=== PATIENT | male | born 1955 | race Caucasian/White ===

== ENCOUNTER 2016-08-28 10:40 | Inpatient (IN) | payer OTHER ==
[2016-08-28] MEDS ORDERED: ONDANSETRON HCL 4 MG/2 ML VIAL IV ONE (11:02)
[2016-08-28] MEDS ORDERED: MORPHINE 4 MG/ML INJECTION IV ONE (11:02)
[2016-08-28] MEDS ORDERED: NICOTINE 21 MG PATCH TOP ONE (11:02)
--- NOTE | 2016-08-28 11:10 | EDPRACDOC ---
- General Information Chief Complaint: Wound Stated Complaint: WOUND Time Seen by Provider: 08/28/16 10:59 Information Source: Patient Mode Of Arrival: Car Home Medications: Home Medications Alprazolam [Xanax] 1 mg PO TID PRN 06/30/13 Carvedilol [Coreg] 6.25 mg PO BID 06/30/13 Gabapentin [Neurontin] 400 mg PO BID 06/30/13 Hydroxyzine Pamoate [Vistaril] 50 mg PO BID PRN 06/30/13 Ranolazine [Ranexa] 1,000 mg PO BID 06/30/13 Rosuvastatin [Crestor] 10 mg PO HS 06/30/13 Tiotropium [place] [Spiriva] 1 puff INH QAM 06/30/13 Metformin HCl [Metformin HCl ER] 1,500 mg PO QAM 09/10/13 Mirtazapine 15 mg PO HS 09/10/13 Aspirin (Enteric Coated) [Ecotrin] 81 mg PO QAM 01/27/14 Gabapentin 800 mg PO HS 02/16/14 Nitroglycerin [Nitrostat] 0.4 mg SL Q5MX3 PRN 02/16/14 Canagliflozin [Invokana] 300 mg PO QAM 08/17/15 Cephalexin Monohydrate [Keflex] 500 mg PO Q8H #30 cap 08/26/16 Albuterol Sulfate [Proair Hfa] 2 puff INH Q6H PRN 08/28/16 Fluticasone/Salmeterol [Advair 250-50 Diskus] 1 puff IH BID 08/28/16 Oxycodone HCl [Oxycodone Immediate Release] 10 mg PO BID 08/28/16 Allergies/Adverse Reactions: Allergies Allergy/AdvReac Type Severity Reaction Status Date / Time peach [[place]] Allergy Severe Hives* Verified 08/28/16 10:53 codeine [Codeine] Allergy Intermediate Nausea/Vomi Verified 08/28/16 10:53 ting - History of Present Illness Onset: 8 DAYS HPI: PT HAS HAD A WOUND TO HIS LEFT LEG FOR THE PAST 8 DAYS. HE WAS INITIALLY SEEN BY HIS DR AND TREATED WITH CIPRO. IT WAS NOT GETTING BETTER, SO HE WAS SEEN ON 08/25. PT WAS SEEN AND EVAL AND ADMISSION WAS RECOMMENDED. THE PT WAS SEEN BY DR. GARING, BUT PT REFUSED TO STAY. PT SAID THE INFECTION IS WORSENING. THE PT SAID THAT HE IS WILLING TO STAY NOW. Mechanism: Reports: None Circumstances: Reports: Preceding Wound Able to Bear Weight: Limited Associated Signs & Symptoms: Reports: Swelling Pain In: Reports: Ankle, Leg ED Past Medical History - Patient Medical History Cardiac History: Reports: Coronary Artery Disease, Hypertension, Heart Attack, Cardiac Catheterization Respiratory History: Reports: COPD, Pneumonia, Emphysema Musculoskeletal History: Reports: Arthritis (left shoulder) Psychological History: Reports: Depression. Denies: Substance Use Disorder Systemic History: Reports: Diabetes (Type 2). Denies: Cancer Additional Past Medical History: PERIPHERAL NEUROPATHY Surgical History: Reports: Angioplasty, Cardiac Catheterization - Family Medical History Reports: Hypertension (mother), Diabetes (mother, brother), Cancer (mother, brother), Stroke (brother), Cardiac Disorders (mother, brother x2) - Social Medical History Smoking Status: Former smoker Social History: Denies: Other Substance Use ETOH: None Substance Abuse: None Lives With: Spouse Lives In: Home EDM Review of Systems - Review of Systems ROS Negative Except as Marked: Yes All systems reviewed and were negative except as marked Musculoskeletal: Ankle Integumentary: Wound - Physical Exam Constitutional: Alert (Awake), No apparent distress Oriented to: Time, Person, Place Last recorded Vital Signs: Last Vital Signs Temp 98.4 F 08/28/16 10:51 Pulse 94 08/28/16 10:51 Resp 18 08/28/16 10:51 BP 134/60 08/28/16 10:51 Pulse Ox 93 08/28/16 10:51 Oxygen Pulse Oxygen Saturation 93 O2 Device Oxygen Flow Rate Fraction of Inspired Oxygen ( FIO2) - HEENT Head: Normal ( normocephalic) Eye Exam: Normal (PERRL, EOMI, Sclera white) Oropharynx: Normal (Pharynx:Moist without exudate,Gums-no swelling) ENT EAC: Normal TMJ: Normal Nose: No Symptoms Reported (septum midline) Neck: Normal (FROM, trachea at midline) - Respiratory/Cardiovascular Respiratory: Normal - CTA (BBS clear to auscultation without adventitious sounds ) Cardiovascular: Normal (RRR without murmur, gallop or rub) - GI Auscultation: Normal (NABS) Palpation: Normal (Soft,No rebound or guarding, non distended) Tenderness: Non tender Gann's Sign: Negative - Musculoskeletal Back: Normal Extremities: Other (LEFT ANKLE WOUND WITH SURROUNDING CELLULITIS) - Integumentary Skin: Normal, Warm, Dry Lymphatics: Normal (no adenopathy) - Neurologic Memory Impaired: Normal Motor Function: Normal (Normal tone, Pulses 2+ No cyanosis or edema, FROM) Cranial Nerve: Normal (CN II-X11 intact sensation, strength 5/5) Cerebellar: Normal Mood Description: Normal Perception: Normal - Results 08/28/16 11:15 08/28/16 11:15 - EKG EKG #1 EKG Time: 11:09 -: Yes EKG interpreted by me Rate: bpm: 85 [place]: Normal Rhythm: NSR Block: None Hypertrophy: None ST: Normal - Diagnostic Imaging Chest Image interpreted by: Radiologist Minimal enlargement of cardiac silhouette with pulmonary vascular congestion but no acute edema. Bronchitic changes with subsegmental atelectasis RIGHT base. - Departure Yes I personally saw and evaluated the patient. Disposition: Admit IP To This Hospital Condition: Fair Final Diagnosis: Left leg cellulitis, Peripheral vascular disease, Poorly controlled type 2 diabetes mellitus, Tobacco abuse Instructions: Managing Diabetes During Sick Days (ED), Diabetes and Exercise Education/Counseling Given To: Patient Education/Counseling Given Regarding: Diagnosis, Treatment Referrals: Shawna Espinoza MD [Primary Care Provider] - One Week Prescriptions: No Action Rosuvastatin [Crestor] 10 mg PO HS Ranolazine [Ranexa] 1,000 mg PO BID Tiotropium [place] [Spiriva] 1 puff INH QAM Carvedilol [Coreg] 6.25 mg PO BID Gabapentin [Neurontin] 400 mg PO BID Alprazolam [Xanax] 1 mg PO TID PRN PRN Reason: Anxiety Hydroxyzine Pamoate [Vistaril] 50 mg PO BID PRN PRN Reason: ANXIETY/ITCHING Mirtazapine 15 mg PO HS Metformin HCl [Metformin HCl ER] 1,500 mg PO QAM Aspirin (Enteric Coated) [Ecotrin] 81 mg PO QAM Gabapentin 800 mg PO HS Nitroglycerin [Nitrostat] 0.4 mg SL Q5MX3 PRN PRN Reason: Chest Pain Or Discomfort Canagliflozin [Invokana] 300 mg PO QAM Cephalexin Monohydrate [Keflex] 500 mg PO Q8H #30 cap Fluticasone/Salmeterol [Advair 250-50 Diskus] 1 puff IH BID Oxycodone HCl [Oxycodone Immediate Release] 10 mg PO BID Albuterol Sulfate [Proair Hfa] 2 puff INH Q6H PRN PRN Reason: Shortness Of Breath Forms: Patient Discharge Instructions, ED Discharge Instructions Decision to Admit Time: 11:58 Decision to admit date: 08/28/16 Decision to admit: from ED - Physician Consulted Hospitalist Provider Called: Jewel Dee
[2016-08-28 11:32] LABS: AUTOMATED BASOPHIL 0.5 % (0-2); AUTOMATED EOSINOPHIL 4.8 % (0-5); AUTOMATED LYMPH 31.5 % (17-44); AUTOMATED NEUTROPHIL 51.2 % (45-76)
[2016-08-28 11:42] LABS: PARTIAL THROMB. TIME 25.2 SEC (22-35)
[2016-08-28 11:47] LABS: BLOOD UREA NITROGEN 16 MG/DL (9-20); CALCIUM 9.1 MG/DL (8.4-10.2); CALCULATED OSMOLALITY 272 MOs/Kg (270-290); CHLORIDE 100 mEq/L (98-107); GLUCOSE 192 mg/dL (70-99); SODIUM LEVEL 138 mEq/L (137-146); TOTAL PROTEIN 8.2 G/DL (6.3-8.2)
[2016-08-28] MEDS ORDERED: GLUCOSE (ORAL GEL) 15 GM TUBE PO PRN (12:06)
[2016-08-28] MEDS ORDERED: GLUCAGON 1 MG VIAL SQ PRN (12:06)
[2016-08-28] MEDS ORDERED: DEXTROSE 25 GM/50 ML PFS IV PRN (12:06)
--- NOTE | 2016-08-28 12:07 | DIRPT ---
CLINICAL DATA: Diabetes mellitus, coronary artery disease, LEFT leg wound treated with Cipro, not improving, worsening infection EXAM: PORTABLE CHEST 1 VIEW COMPARISON: Portable exam 1108 hours compared to 06/30/2013 FINDINGS: Minimal enlargement of cardiac silhouette and pulmonary vascular congestion. Mediastinal contours normal. Bronchitic changes with subsegmental atelectasis at RIGHT base. Remaining lungs clear. No pleural effusion or pneumothorax. Bones unremarkable. IMPRESSION: Minimal enlargement of cardiac silhouette with pulmonary vascular congestion but no acute edema. Bronchitic changes with subsegmental atelectasis RIGHT base. Electronically Signed By: Rik Ortiz M.D. On: 08/28/2016 12:05
[2016-08-28] MEDS ORDERED: NITROGLYCERINE 0.4 MG TAB SL PRN (12:27)
[2016-08-28] MEDS ORDERED: Non-Formulary Medication ITEM (Alprazolam [Xanax] 1 MG) PO PRN (12:27)
--- NOTE | 2016-08-28 12:35 | HISTPHYS ---
- Chief Complaint Painful swelling warmth and redness involving left foot up to knee level, left lateral ankle ulcer. - History of Present Illness 60 yowm presented to emergency room early on today for evaluation of progressive worsening swelling warmth and redness involving left lower extremity from knee down. Patient stays that about 10 days ago he he has developed fairly intense pain involving left lateral ankle, his subsequent noticed progression ulceration redness warmth tenderness to touch and limitation of motion at the ankle level. He has noticed that redness has spread to distal aspect of the foot and toe was the knee as well. He reports no trauma to left ankle or foot. He was seen by PCP and placed on course of Keflex and despite using his medications prescribed he did not sustain asymptomatic improvement. Area of ulceration has enlarged and redness has spread as well. Given worsening symptoms and persistent constant pain he decided to be evaluated emergency room.. Diagnosis of diabetic ankle ulcer with extensive left lower leg cellulitis was established medical consultation was phoned in for inpatient treatment. - Medical History Cardiac History: Reports: Coronary Artery Disease, Hypertension, Heart Attack, Cardiac Catheterization, Valvular Heart Disease Respiratory History: Reports: COPD, Pneumonia, Emphysema GI/ History: Reports: Renal Disease, Gastroesophageal Reflux Musculoskeletal History: Reports: Arthritis (left shoulder) Systemic History: Reports: Diabetes (Type 2). Denies: Cancer Neurological History: Reports: No Significant History (Surgery on the lung, forearm fixation due to fracture) Psychological History: Reports: Depression. Denies: Substance Use Disorder - Surgical History Reports: Angioplasty, Cardiac Catheterization - Medictions/Allergies Allergies peach [[place]] Allergy (Severe, Verified 08/28/16 10:53) Hives* codeine [Codeine] Allergy (Intermediate, Verified 08/28/16 10:53) Nausea/Vomiting Current Medication List: Reviewed Home Medications Alprazolam [Xanax] 1 mg PO TID PRN 06/30/13 Carvedilol [Coreg] 6.25 mg PO BID 06/30/13 Gabapentin [Neurontin] 400 mg PO BID 06/30/13 Hydroxyzine Pamoate [Vistaril] 50 mg PO BID PRN 06/30/13 Ranolazine [Ranexa] 1,000 mg PO BID 06/30/13 Rosuvastatin [Crestor] 10 mg PO HS 06/30/13 Tiotropium [place] [Spiriva] 1 puff INH QAM 06/30/13 Metformin HCl [Metformin HCl ER] 1,500 mg PO QAM 09/10/13 Mirtazapine 15 mg PO HS 09/10/13 Aspirin (Enteric Coated) [Ecotrin] 81 mg PO QAM 01/27/14 Gabapentin 800 mg PO HS 02/16/14 Nitroglycerin [Nitrostat] 0.4 mg SL Q5MX3 PRN 02/16/14 Canagliflozin [Invokana] 300 mg PO QAM 08/17/15 Cephalexin Monohydrate [Keflex] 500 mg PO Q8H #30 cap 08/26/16 Albuterol Sulfate [Proair Hfa] 2 puff INH Q6H PRN 08/28/16 Fluticasone/Salmeterol [Advair 250-50 Diskus] 1 puff IH BID 08/28/16 Oxycodone HCl [Oxycodone Immediate Release] 10 mg PO BID 08/28/16 - Family History Reports: Hypertension (mother), Diabetes (mother, brother), Cancer (mother, brother), Stroke (brother), Cardiac Disorders (mother, brother x2) - Social History Travel Outside of [place] in the Last 3 Months?: No Lives: With Family Smoking Status: Heavy tobacco smoker (5 or more cigarettes/day or daily pipe/ cigar) Social History: Denies: Other Substance Use - Review of Systems Constitutional: Chills, Fever, Diaphoresis, Fatigue, Loss of Appetite, Weakness Eyes: No Symptoms Reported Ears: No Symptoms Reported Nose: No Symptoms Reported Mouth: No Symptoms Reported Throat/Neck: No Symptoms Reported Respiratory: Cough, Shortness of Breath, Wheezing, Sputum, Dyspnea Cardiovascular: No Symptoms Reported Gastrointestinal: Constipation, Heartburn Genitourinary: Nocturia Neurological: Numbness, Weakness Musculoskeletal:: Arthritis Integumentary: No Symptoms Reported Allergic/Immunologic: No Symptoms Reported Hematologic: No Symptoms Reported Endocrine: No Symptoms Reported Psychiatric: No Symptoms Reported - Physical Exam Vital Signs: Initial Vitals Temperature 98.4 F 08/28/16 10:51 Pulse Rate 94 08/28/16 10:51 Respiratory Rate 18 08/28/16 10:51 Blood Pressure 134/60 08/28/16 10:51 Pulse Oxygen Saturation 93 08/28/16 10:51 Constitutional: Alert Oriented to: Time, Person, Place - HEENT Head: Normal Eye: Normal Oropharynx: Normal ENT EAC: Normal TMJ: Normal Nose: No Symptoms Reported Respiratory: Diminished, Rhonchi Cardiovascular: Normal, Systolic murmur - GI Auscultation: Normal Palpation: Normal Tenderness: Non tender Rectal Exam: Deferred - Exam Deferred: Yes - Musculoskeletal Back: Normal Extremities: Normal, Cyanosis Spine: non-tender, limited range of motion - Integumentary Skin: Warm, Dry Lymphatics: Normal - Neurologic Memory Impaired: Normal Motor Function: Normal Cranial Nerve: Normal Cerebellar: Ataxia Mood Description: Anxious Thought: Coherent Perception: Normal - Focused CV Perfusion Exam Vital Signs: Last Vital Signs Temp 98.4 F 08/28/16 10:51 Pulse 82 08/28/16 12:00 Resp 18 08/28/16 12:00 BP 108/80 08/28/16 12:00 Pulse Ox 94 08/28/16 12:00 - Diagnostic Findings Last Vital Signs Temp 98.4 F 08/28/16 10:51 Pulse 82 08/28/16 12:00 Resp 18 08/28/16 12:00 BP 108/80 08/28/16 12:00 Pulse Ox 94 08/28/16 12:00 08/28/16 11:15 08/28/16 11:15 Abnormal Lab Results 08/28/16 08/28/16 11:15 11:15 RBC 4.36 L MCV 103 H MCH 35.1 H MPV 7.0 L [place] % (Auto) 12.0 H Anion Gap 17 H Glucose 192 H Abnormal Lab Results 08/28/16 08/28/16 11:15 11:15 RBC 4.36 L MCV 103 H MCH 35.1 H MPV 7.0 L [place] % (Auto) 12.0 H Anion Gap 17 H Glucose 192 H Patient Name: BRAYDEN RAYA LOC: ED : 1955 AGE: 60 Order Date:08/28/16 Date of Service:02/04 Report # [id number] Ord Physician: Geni Shetty MD Exam # [id number] Emergency Physician: Geni Shetty MD Exam(s): [id number] RAD/DG CHEST PORTABLE CLINICAL DATA: Diabetes mellitus, coronary artery disease, LEFT leg wound treated with Cipro, not improving, worsening infection EXAM: PORTABLE CHEST 1 VIEW COMPARISON: Portable exam 1108 hours compared to 06/30/2013 FINDINGS: Minimal enlargement of cardiac silhouette and pulmonary vascular congestion. Mediastinal contours normal. Bronchitic changes with subsegmental atelectasis at RIGHT base. Remaining lungs clear. No pleural effusion or pneumothorax. Bones unremarkable. IMPRESSION: Minimal enlargement of cardiac silhouette with pulmonary vascular congestion but no acute edema. Bronchitic changes with subsegmental atelectasis RIGHT base. Electronically Signed By: Rik Ortiz M.D. On: 08/28/2016 12:05 Electronically Signed By: Rik Ortiz MD Electronically Signed Date/Time: 207 Dictate Date/Time: 08/28/16 1203 Technologist: Zena Lawrence Transcribed By: Floyd Transcribed - Assessment (1) Left leg cellulitis L03.116 - CELLULITIS OF LEFT LOWER LIMB Acute Present on Admission: Yes Quite extensive. Patient will be admitted to general medical floor and will receive IV vancomycin and IV unasyn. Continue local care. MRI of the ankle and foot will be obtained to rule out osteomyelitis (2) Diabetic ankle ulcer E11.622 - TYPE 2 DIABETES MELLITUS WITH OTHER SKIN ULCER; L97.309 - NON- PRESSURE CHRONIC ULCER OF UNSP ANKLE WITH UNSP SEVERITY Acute Present on Admission: Yes Continue daily cleaning and dressing change (3) Peripheral vascular disease I73.9 - PERIPHERAL VASCULAR DISEASE, UNSPECIFIED Acute Present on Admission: Yes Continue aspirin (4) Coronary atherosclerosis of [place] coronary artery I25.10 - ATHSCL HEART DISEASE OF [place] CORONARY ARTERY W/O ANG PCTRS Chronic Present on Admission: Yes Qualifiers: Associated angina: without angina Stable on cardiac regimen. No angina. Again stressed smoking cessation. (5) Poorly controlled type 2 diabetes mellitus E11.65 - TYPE 2 DIABETES MELLITUS WITH HYPERGLYCEMIA Acute Present on Admission: Yes Continue oral agents ADA diet and sliding scale regular insulin. (6) COPD (chronic obstructive pulmonary disease) with acute bronchitis J44.0 - CHRONIC OBSTRUCTIVE PULMON DISEASE W ACUTE LOWER RESP INFCT Acute Present on Admission: Yes Continue nebulized bronchodilators and pulmonary toilet. Monitor pulmonary status. Overall stable from that perspective Case Care Discussed with: Patient, Family, Nursing Staff Total Time: 45 min . Critical Care: No Code: 37544
[2016-08-28] MEDS ORDERED: FLUTICASONE/SALMETEROL 250/50 DISKUS INH SCH (13:00)
[2016-08-28] MEDS ORDERED: ALBUTEROL 0.083% 3 ML NEB NEB SCH (14:00)
--- NOTE | 2016-08-28 14:17 | DIRPT ---
CLINICAL DATA: Diabetic ulcer around the ankle. EXAM: MRI OF THE LEFT ANKLE WITHOUT AND WITH CONTRAST TECHNIQUE: Multiplanar, multisequence MR imaging of the ankle was performed before and after the administration of intravenous contrast. CONTRAST: 20 cc MultiHance COMPARISON: 08/25/2016 FINDINGS: TENDONS Peroneal: Unremarkable Posteromedial: Mild distal tibialis posterior tendinopathy. Anterior: Unremarkable Achilles: Unremarkable Plantar Fascia: Unremarkable LIGAMENTS Lateral: Unremarkable Medial: Unremarkable CARTILAGE Ankle Joint: 3 mm chronic appearing osteochondral defect to the medial talar dome, image 19 series 8. Subtalar Joints/Sinus Tarsi: Unremarkable Bones: Unremarkable. Soft tissues: There is subcutaneous edema tracking along the dorsum of the foot and lateral foot, and also tracking lateral to the lateral malleolus, but without abscess, underlying osteomyelitis, or well-defined soft tissue defect. No significant volume of a necrotic hypoenhancing tissue identified. IMPRESSION: IMPRESSION 1. Subcutaneous edema and enhancement suggesting cellulitis tracking laterally along the ankle and along the dorsum of the foot. No abscess or osteomyelitis identified. No significant volume of necrotic tissue identified. 2. Small chronic appearing osteochondral defect of medial talar dome, 3 mm diameter. 3. Mild distal tibialis posterior tendinopathy. Electronically Signed By: Larry Calderón M.D. On: 08/28/2016 14:14
[2016-08-28] MEDS: NS 1,000 ML IV SCH (14:19)
[2016-08-28] MEDS: AMPICILLIN-SULBACTAM 3 GM in NS 100 ML IV SCH ×2 (14:20→20:21)
[2016-08-28] MEDS: Albuterol/Ipratropium Neb 3 ML NEB NEB SCH ×2 (14:34→19:20)
[2016-08-28] MEDS ORDERED: Vaccine Screening Complete SCH (16:00)
[2016-08-28 17:00] VITALS: BMI 29.5
[2016-08-28] MEDS: REGULAR INSULIN 100 UNITS/ML - 3 ML VIAL SQ SCH (17:44)
[2016-08-28] MEDS: ENOXAPARIN 60 MG/0.6 ML PFS SQ SCH (17:44)
[2016-08-28] MEDS: FLUTICASONE/SALMETEROL 250/50 DISKUS INH SCH (19:27)
[2016-08-28] MEDS: OXYCODONE HCL 5 MG TABLET PO SCH (20:19)
[2016-08-28] MEDS: NICOTINE 21 MG PATCH TOP SCH (20:20)
[2016-08-28] MEDS: CARVEDILOL 6.25 MG TAB PO SCH (20:27)
[2016-08-28] MEDS: MIRTAZAPINE 15 MG TAB PO SCH (20:27)
[2016-08-28] MEDS: RANOLAZINE 500 MG EXT RELEASE TAB PO SCH (20:27)
[2016-08-28] MEDS: ROSUVASTATIN 10 MG TAB PO SCH (20:27)
[2016-08-28] MEDS: GABAPENTIN 800 MG TAB PO SCH (20:28)
[2016-08-28] MEDS: GABAPENTIN 400 MG CAP PO SCH (20:28)
[2016-08-28] MEDS ORDERED: RANOLAZINE 1000 MG PO SCH (21:00)
[2016-08-28] MEDS ORDERED: Non-Formulary Medication ITEM (Oxycodone Hcl [Oxycodone Immediate Release] 10 MG) PO SCH (21:00)
[2016-08-28 23:17] LABS: LEUKOCYTES/URINE NEG (NEGATIVE); NITRITE/URINE NEG (NEGATIVE); RBC/URINE 0-2 (0-2); URINE OCCULT BLOOD NEG (NEG/TRACE)
[2016-08-29] MEDS: ALPRAZOLAM 0.5 MG TAB PO PRN ×3 (00:19→23:47)
[2016-08-29] MEDS: REGULAR INSULIN 100 UNITS/ML - 3 ML VIAL SQ SCH ×5 (00:24→23:47)
[2016-08-29] MEDS: Albuterol/Ipratropium Neb 3 ML NEB NEB SCH ×4 (01:26→21:18)
[2016-08-29] MEDS: AMPICILLIN-SULBACTAM 3 GM in NS 100 ML IV SCH ×4 (02:39→19:21)
[2016-08-29] MEDS: NS 1,000 ML IV SCH (02:42)
[2016-08-29] MEDS: PANTOPRAZOLE 40 MG TAB PO SCH (05:33)
[2016-08-29] MEDS: MetFORMIN, EXT REL 500 MG TAB PO SCH (05:33)
[2016-08-29] MEDS: FLUTICASONE/SALMETEROL 250/50 DISKUS INH SCH ×2 (07:36→21:23)
[2016-08-29] MEDS: OXYCODONE HCL 5 MG TABLET PO SCH ×2 (07:55→20:59)
[2016-08-29] MEDS: GABAPENTIN 400 MG CAP PO SCH ×2 (07:56→13:36)
[2016-08-29] MEDS: CARVEDILOL 6.25 MG TAB PO SCH ×2 (07:56→19:23)
[2016-08-29] MEDS: RANOLAZINE 500 MG EXT RELEASE TAB PO SCH ×2 (07:56→19:23)
[2016-08-29] MEDS: CANAGLIFLOZIN 100 MG PO SCH (07:57)
[2016-08-29] MEDS ORDERED: FLU VACCINE (Afluria) 0.5 ML DOSE IM ONE (08:00)
[2016-08-29 08:07] LABS: BLOOD UREA NITROGEN 15 MG/DL (9-20); CALCIUM 8.5 MG/DL (8.4-10.2); CALCULATED OSMOLALITY 268 MOs/Kg (270-290); CHLORIDE 102 mEq/L (98-107); GLUCOSE 116 mg/dL (70-99); SODIUM LEVEL 138 mEq/L (137-146)
[2016-08-29] MEDS ORDERED: METFORMIN HCL 1500 MG PO SCH (09:00)
[2016-08-29] MEDS ORDERED: Non-Formulary Medication ITEM (Tiotropium Bromide [Spiriva] 1 PUFF) INH SCH (09:00)
--- NOTE | 2016-08-29 13:26 | GENMEDPROG ---
Subjective Note: Pt. in bed , alert awake oriented and responsive. Left lower extremity pain significantly improved. Patient denies any cough phlegm production PND orthopnea. Blood sugar under control with no hypoglycemia. Notes Reviewed: Yes: Events from last night noted and discussed with Clinical Staff Current Medication List: Reviewed Currently: Reports: Wheezing, MARTINEZ, SOB, Sputum, Reflux Sx DVT Prophylaxis: Yes - Physical Examination Vital Signs and I&O: Last Vital Signs Temp 97.5 F 08/29/16 05:38 Pulse 72 08/29/16 05:38 Resp 18 08/29/16 05:38 BP 122/72 08/29/16 05:38 Pulse Ox 97 08/29/16 07:30 Oxygen Pulse Oxygen Saturation 97 O2 Device Room Air Oxygen Flow Rate 2 Fraction of Inspired Oxygen ( FIO2) Intake & Output 08/26/16 08/27/16 08/28/16 08/29/16 23:59 23:59 23:59 23:59 Intake Total 1127 1440 Output Total 1000 Balance 127 1440 Patient's weight 98.571 kg General: Alert, Oriented x3, Cooperative, No acute distress HEENT: Normal, PERRLA, EOMI, Anicteric Sclera Neck: Non-tender, Normal inspection, Limited range of motion Lymphatics: Normal Respiratory: Diminished, Rhonchi Cardiovascular: Regular rate, Normal S1, Normal S2, Murmurs GI: Normal bowel sounds, Soft, Non tender, No hepatospenomegaly, Obese Extremities/Musculoskeletal: Swelling, Cyanosis, DJD, Other (Left lower extremity still warm to touch but no hot, still redness and tenderness.) Skin: Warm,Dry and Intact, No rashes Neurological: Normal speech, Normal tone, Cranial nerves 3-12 NL Psych/Mental Status: Anxious Lab/DI/Studies Reviewed: Allergies peach [[place]] Allergy (Severe, Verified 08/28/16 10:53) Hives* codeine [Codeine] Allergy (Intermediate, Verified 08/28/16 10:53) Nausea/Vomiting 08/28/16 11:15 08/29/16 06:23 Abnormal Lab Results 08/28/16 08/28/16 08/29/16 16:39 23:04 05:21 Glucose POC Capillary Glucose 164 H 153 H 109 H Calculated Osmolality 08/29/16 08/29/16 06:23 11:22 Glucose 116 H POC Capillary Glucose 148 H Calculated Osmolality 268 L - Assessment (1) Left leg cellulitis Acute L03.116 - CELLULITIS OF LEFT LOWER LIMB Comment/Plan: Continue vancomycin and Unasyn, continue local care. MRI results discussed with patient his -test showed no osteomyelitis (2) Diabetic ankle ulcer Acute E11.622 - TYPE 2 DIABETES MELLITUS WITH OTHER SKIN ULCER; L97.309 - NON- PRESSURE CHRONIC ULCER OF UNSP ANKLE WITH UNSP SEVERITY Comment/Plan: Continue daily cleaning and dressing change (3) Peripheral vascular disease Acute I73.9 - PERIPHERAL VASCULAR DISEASE, UNSPECIFIED Comment/Plan: Continue aspirin (4) Poorly controlled type 2 diabetes mellitus Acute E11.65 - TYPE 2 DIABETES MELLITUS WITH HYPERGLYCEMIA Comment/Plan: Continue oral agents ADA diet and sliding scale regular insulin. Blood sugar under control with no episodes of hypoglycemia (5) Coronary atherosclerosis of [place] coronary artery Chronic I25.10 - ATHSCL HEART DISEASE OF [place] CORONARY ARTERY W/O ANG PCTRS Qualifiers: Associated angina: without angina Comment/Plan: Stable on cardiac regimen. No angina. Again stressed smoking cessation. (6) COPD (chronic obstructive pulmonary disease) with acute bronchitis Acute J44.0 - CHRONIC OBSTRUCTIVE PULMON DISEASE W ACUTE LOWER RESP INFCT Comment/Plan: Continue nebulized bronchodilators and pulmonary toilet. Monitor pulmonary status. Overall stable from that perspective (7) Chronic back pain Acute M54.9 - DORSALGIA, UNSPECIFIED; G89.29 - OTHER CHRONIC PAIN Qualifiers: Back pain location: low back pain Back pain laterality: unspecified Sciatica laterality: sciatica laterality unspecified Comment/Plan: Continue narcotic analgesics. Case Care Discussed with: Patient, Family, Nursing Staff Education/Counseling Given To: Patient Education/Counseling Given Regarding: Diagnosis, Treatment, Prognosis, Follow Up Total Time: 50 min . Critical Care: No Code: 50057 (12+)
[2016-08-29] MEDS ORDERED: OXYCODONE HCL 5 MG TABLET PO PRN (13:30)
[2016-08-29] MEDS: OXYCODONE HCL 5 MG TABLET PO PRN ×2 (13:36→19:21)
[2016-08-29] MEDS ORDERED: CLOTRIMAZOLE & BETAMETHASONE 45 GM TUBE TOP SCH (14:00)
[2016-08-29] MEDS: NICOTINE 21 MG PATCH TOP SCH (16:38)
[2016-08-29] MEDS: ENOXAPARIN 60 MG/0.6 ML PFS SQ SCH (16:39)
[2016-08-29] MEDS: CLOTRIMAZOLE & BETAMETHASONE 45 GM TUBE TOP SCH (19:21)
[2016-08-29] MEDS: GABAPENTIN 800 MG TAB PO SCH (19:22)
[2016-08-29] MEDS: ROSUVASTATIN 10 MG TAB PO SCH (19:22)
[2016-08-29] MEDS: MIRTAZAPINE 15 MG TAB PO SCH (19:23)
[2016-08-30] MEDS: OXYCODONE HCL 5 MG TABLET PO PRN ×3 (01:49→19:54)
[2016-08-30] MEDS: AMPICILLIN-SULBACTAM 3 GM in NS 100 ML IV SCH ×5 (01:50→22:57)
[2016-08-30] MEDS: Albuterol/Ipratropium Neb 3 ML NEB NEB SCH ×4 (02:06→20:56)
[2016-08-30] MEDS: MetFORMIN, EXT REL 500 MG TAB PO SCH (04:58)
[2016-08-30] MEDS: GABAPENTIN 400 MG CAP PO SCH ×2 (04:58→14:46)
[2016-08-30] MEDS: PANTOPRAZOLE 40 MG TAB PO SCH (04:59)
[2016-08-30] MEDS: REGULAR INSULIN 100 UNITS/ML - 3 ML VIAL SQ SCH ×4 (05:37→22:57)
[2016-08-30 07:16] LABS: MPV 6.9 fL (7.4-10.4)
[2016-08-30] MEDS: FLUTICASONE/SALMETEROL 250/50 DISKUS INH SCH ×2 (07:39→20:59)
[2016-08-30 07:41] LABS: BLOOD UREA NITROGEN 13 MG/DL (9-20); CALCIUM 8.8 MG/DL (8.4-10.2); CALCULATED OSMOLALITY 269 MOs/Kg (270-290); CHLORIDE 101 mEq/L (98-107); GLUCOSE 154 mg/dL (70-99); SODIUM LEVEL 138 mEq/L (137-146)
[2016-08-30] MEDS: OXYCODONE HCL 5 MG TABLET PO SCH ×2 (08:57→21:37)
[2016-08-30] MEDS: CARVEDILOL 6.25 MG TAB PO SCH ×2 (08:58→21:37)
[2016-08-30] MEDS: CANAGLIFLOZIN 100 MG PO SCH (08:58)
[2016-08-30] MEDS: RANOLAZINE 500 MG EXT RELEASE TAB PO SCH ×2 (09:00→21:38)
[2016-08-30] MEDS: CLOTRIMAZOLE & BETAMETHASONE 45 GM TUBE TOP SCH ×2 (10:01→21:38)
[2016-08-30] MEDS: ALPRAZOLAM 0.5 MG TAB PO PRN ×2 (13:09→21:37)
[2016-08-30] MEDS: NS 1,000 ML IV SCH (16:43)
[2016-08-30] MEDS: NICOTINE 21 MG PATCH TOP SCH (16:45)
[2016-08-30] MEDS ORDERED: ENOXAPARIN 40 MG/0.4 ML PFS SQ SCH (18:00)
--- NOTE | 2016-08-30 20:00 | GENMEDPROG ---
Subjective Note: Patient in bed responsive follows commands. Left leg pain significantly improved. Denies and difficulties breathing cough or phlegm production. Blood sugar under control no hypoglycemia. Notes Reviewed: Yes: Events from last night noted and discussed with Clinical Staff Current Medication List: Reviewed Currently: Reports: Wheezing, MARTINEZ, SOB, Sputum, Reflux Sx DVT Prophylaxis: Yes - Physical Examination Vital Signs and I&O: Last Vital Signs Temp 97.7 F 08/30/16 15:40 Pulse 79 08/30/16 15:40 Resp 18 08/30/16 15:40 BP 118/67 08/30/16 15:40 Pulse Ox 97 08/30/16 15:40 Oxygen Pulse Oxygen Saturation 97 O2 Device Room Air Oxygen Flow Rate 2 Fraction of Inspired Oxygen ( FIO2) Intake & Output 08/27/16 08/28/16 08/29/16 08/30/16 23:59 23:59 23:59 23:59 Intake Total 1127 3522 2694 Output Total 1000 1200 Balance 127 2322 2694 Patient's weight 98.571 kg General: Alert, Oriented x3, Cooperative, No acute distress HEENT: Normal, PERRLA, EOMI, Anicteric Sclera Neck: Non-tender, Normal inspection, Limited range of motion Lymphatics: Normal Respiratory: Diminished, Rhonchi Cardiovascular: Regular rate, Normal S1, Normal S2, Murmurs GI: Normal bowel sounds, Soft, Non tender, No hepatospenomegaly, Obese Extremities/Musculoskeletal: Swelling, Cyanosis, DJD, Other (Left lower extremity still warm to touch but no hot, still redness and tenderness.) Skin: Warm,Dry and Intact, No rashes Neurological: Normal speech, Normal tone, Cranial nerves 3-12 NL Psych/Mental Status: Anxious - Assessment (1) Left leg cellulitis Acute L03.116 - CELLULITIS OF LEFT LOWER LIMB Comment/Plan: Clinically improving continue combination of vancomycin and unison. (2) Diabetic ankle ulcer Acute E11.622 - TYPE 2 DIABETES MELLITUS WITH OTHER SKIN ULCER; L97.309 - NON- PRESSURE CHRONIC ULCER OF UNSP ANKLE WITH UNSP SEVERITY Comment/Plan: Continue daily cleaning and dressing change (3) Peripheral vascular disease Acute I73.9 - PERIPHERAL VASCULAR DISEASE, UNSPECIFIED Comment/Plan: Continue aspirin (4) Poorly controlled type 2 diabetes mellitus Acute E11.65 - TYPE 2 DIABETES MELLITUS WITH HYPERGLYCEMIA Comment/Plan: Continue oral agents ADA diet and sliding scale regular insulin. Blood sugar under control with no episodes of hypoglycemia (5) Coronary atherosclerosis of [place] coronary artery Chronic I25.10 - ATHSCL HEART DISEASE OF [place] CORONARY ARTERY W/O ANG PCTRS Qualifiers: Associated angina: without angina Comment/Plan: Stable on cardiac regimen. No angina. Again stressed smoking cessation. (6) COPD (chronic obstructive pulmonary disease) with acute bronchitis Acute J44.0 - CHRONIC OBSTRUCTIVE PULMON DISEASE W ACUTE LOWER RESP INFCT Comment/Plan: Continue nebulized bronchodilators and pulmonary toilet. Monitor pulmonary status. Overall stable from that perspective (7) Chronic back pain Acute M54.9 - DORSALGIA, UNSPECIFIED; G89.29 - OTHER CHRONIC PAIN Qualifiers: Back pain location: low back pain Back pain laterality: unspecified Sciatica laterality: sciatica laterality unspecified Comment/Plan: Continue narcotic analgesics. Case Care Discussed with: Patient, Family, Nursing Staff Education/Counseling Given To: Patient Education/Counseling Given Regarding: Diagnosis, Treatment, Prognosis, Follow Up Total Time: 45 min. Critical Care: No Code: 27616 (12+)
[2016-08-30] MEDS: GABAPENTIN 800 MG TAB PO SCH (21:38)
[2016-08-30] MEDS: ROSUVASTATIN 10 MG TAB PO SCH (21:38)
[2016-08-30] MEDS: MIRTAZAPINE 15 MG TAB PO SCH (21:38)
[2016-08-31] MEDS: Albuterol/Ipratropium Neb 3 ML NEB NEB SCH ×2 (01:55→07:22)
[2016-08-31] MEDS: AMPICILLIN-SULBACTAM 3 GM in NS 100 ML IV SCH ×2 (05:01→09:20)
[2016-08-31] MEDS: PANTOPRAZOLE 40 MG TAB PO SCH (05:03)
[2016-08-31] MEDS: GABAPENTIN 400 MG CAP PO SCH (05:03)
[2016-08-31] MEDS: MetFORMIN, EXT REL 500 MG TAB PO SCH (05:04)
[2016-08-31] MEDS: REGULAR INSULIN 100 UNITS/ML - 3 ML VIAL SQ SCH ×2 (06:34→12:09)
[2016-08-31 07:12] LABS: MPV 6.9 fL (7.4-10.4)
[2016-08-31] MEDS: FLUTICASONE/SALMETEROL 250/50 DISKUS INH SCH (07:23)
[2016-08-31 07:48] LABS: BLOOD UREA NITROGEN 12 MG/DL (9-20); CALCIUM 8.6 MG/DL (8.4-10.2); CALCULATED OSMOLALITY 264 MOs/Kg (270-290); CHLORIDE 101 mEq/L (98-107); GLUCOSE 106 mg/dL (70-99); SODIUM LEVEL 137 mEq/L (137-146)
[2016-08-31] MEDS: RANOLAZINE 500 MG EXT RELEASE TAB PO SCH (08:08)
[2016-08-31] MEDS: CANAGLIFLOZIN 100 MG PO SCH (08:08)
[2016-08-31] MEDS: CARVEDILOL 6.25 MG TAB PO SCH (08:08)
[2016-08-31] MEDS: CLOTRIMAZOLE & BETAMETHASONE 45 GM TUBE TOP SCH (08:08)
[2016-08-31] MEDS: OXYCODONE HCL 5 MG TABLET PO SCH (08:08)
--- NOTE | 2016-08-31 08:27 | PCM.DCS92 ---
- Final/Secondary Discharge Diagnosis (1) Left leg cellulitis Acute L03.116 - CELLULITIS OF LEFT LOWER LIMB Present on Admission: Yes Comment: Clinically improving , stable to change to oral antibiotics (2) Diabetic ankle ulcer Acute E11.622 - TYPE 2 DIABETES MELLITUS WITH OTHER SKIN ULCER; L97.309 - NON- PRESSURE CHRONIC ULCER OF UNSP ANKLE WITH UNSP SEVERITY Present on Admission: Yes Comment: Continue daily cleaning and dressing change (3) Peripheral vascular disease Acute I73.9 - PERIPHERAL VASCULAR DISEASE, UNSPECIFIED Present on Admission: Yes Comment: Continue aspirin (4) Poorly controlled type 2 diabetes mellitus Acute E11.65 - TYPE 2 DIABETES MELLITUS WITH HYPERGLYCEMIA Present on Admission: Yes Comment: Continue oral agents ADA diet and sliding scale regular insulin. Blood sugar under control with no episodes of hypoglycemia (5) Coronary atherosclerosis of [place] coronary artery Chronic I25.10 - ATHSCL HEART DISEASE OF [place] CORONARY ARTERY W/O ANG PCTRS Present on Admission: Yes without angina Comment: Stable on cardiac regimen. No angina. Again stressed smoking cessation. (6) COPD (chronic obstructive pulmonary disease) with acute bronchitis Acute J44.0 - CHRONIC OBSTRUCTIVE PULMON DISEASE W ACUTE LOWER RESP INFCT Present on Admission: Yes Comment: Continue nebulized bronchodilators and pulmonary toilet. Monitor pulmonary status. Overall stable from that perspective (7) Chronic back pain Acute M54.9 - DORSALGIA, UNSPECIFIED; G89.29 - OTHER CHRONIC PAIN low back pain unspecified sciatica laterality unspecified Comment: Continue narcotic analgesics. (8) Nicotine addiction Chronic F17.200 - NICOTINE DEPENDENCE, UNSPECIFIED, UNCOMPLICATED Present on Admission: Yes cigarettes unspecified nicotine-induced disorder F17.219 - Nicotine dependence, cigarettes, with unspecified nicotine-induced disorders Plan/Goal/Comment: Patient was repeatedly encouraged to quit smoking. He has been down from 5 packs a day for many years to JUST 1 pack a day Discharge Disposition: Home Discharge Condition: Improved Cognitive Discharge Status: Unimpaired Fuctional Discharge Status: Independent Forms: Patient Discharge Instructions, ED Discharge Instructions Physician Follow up/Referrals: Shawna Espinoza MD [Primary Care Provider] - One Week Home Medications / New Prescriptions: New Amoxicillin/Potassium Clav [Augmentin 875-125 Tablet] 1 each PO TIDAC #21 tablet Moxifloxacin HCl [Avelox] 400 mg PO DAILY #7 tablet Mupirocin [Bactroban] 22 gm TP BID #1 tube Probiotic Blend [Richelle Q] 1 each PO DAILY #60 tab Clotrimazole/Betamet Diprop [Lotrisone Cream] 45 gm TOP DAILY #1 cream..g. Oxycodone Immediate Release [Oxycodone Immediate Release (OxyIR)] 5 mg PO Q6H PRN #30 tab PRN Reason: Pain Continue Rosuvastatin [Crestor] 10 mg PO HS Ranolazine [Ranexa] 1,000 mg PO BID Tiotropium [place] [Spiriva] 1 puff INH QAM Carvedilol [Coreg] 6.25 mg PO BID Gabapentin [Neurontin] 400 mg PO BID Alprazolam [Xanax] 1 mg PO TID PRN PRN Reason: Anxiety Hydroxyzine Pamoate [Vistaril] 50 mg PO BID PRN PRN Reason: ANXIETY/ITCHING Mirtazapine 15 mg PO HS Metformin HCl [Metformin HCl ER] 1,500 mg PO QAM Aspirin (Enteric Coated) [Ecotrin] 81 mg PO QAM Gabapentin 800 mg PO HS Nitroglycerin [Nitrostat] 0.4 mg SL Q5MX3 PRN PRN Reason: Chest Pain Or Discomfort Fluticasone/Salmeterol [Advair 250-50 Diskus] 1 puff IH BID Oxycodone HCl [Oxycodone Immediate Release] 10 mg PO BID Albuterol Sulfate [Proair Hfa] 2 puff INH Q6H PRN PRN Reason: Shortness Of Breath Discontinued Cephalexin Monohydrate [Keflex] 500 mg PO Q8H #30 cap No Action Canagliflozin [Invokana] 300 mg PO QAM O2 Device: Room Air Diet at Discharge: Cardiac, Heart Healthy, Low Salt, Diabetic, 2200 Calorie, High Fiber Activity: As Tolerated Call Office For: Fever over 101 F Discontinue use of:: Alcohol, All Illegal Substances, All Types of Tobacco - DC Summary Notes Hospital Course Note:: Discharge summary on patient named BRAYDEN RAYA admitted to [facility] on 08/28/16 by Jewel Dee MD. Date of discharge is []. Patient has initially presented to emergency room on August 28 for evaluation of painful swelling warmth redness and tenderness involving left lower extremity from below knee down. Despite using Keflex as outpatient he did not sustain asymptomatic improvement he reported that redness swelling and tenderness has significantly worsened over the past couple of days. Patient has also developed left lateral ankle ulcer. Please refer to the admission for further details. ED workup was undertaken and diagnosis of a acute extensive left lower extremity cellulitis, left ankle diabetic ulcer were established and patient was admitted to general medical floor. Outpatient regimen for his chronic medical conditions was continued. During hospital stay patient has received IV Unasyn and IV vancomycin, local wound care was provided to left lateral ankle ulcer. Smoking cessation counseling was provided as well. MRI of left ankle was obtained which showed subcutaneous edema and enhancement suggestive of cellulitis but no abscess or osteomyelitis. Patient has responded very well to applied therapy and by the time of discharge warmth redness tenderness and swelling have almost completely resolved. His activity level was gradually advanced and by time of discharge was able to ambulate without any assistance. His blood sugar remained under good control with no episodes of hypoglycemia labs were monitored closely and remained within normal limit range. It was felt that by August 31 patient has reached maximum benefit of inpatient therapy and in clinically stable improved condition he has been discharged home to the care of the family and his PCP. Total Time: 40 min . Code: 68544 (>30min.) - Physical Exam Vital Signs: Last Vital Signs Temp 98.0 F 08/31/16 05:10 Pulse 80 08/31/16 05:10 Resp 19 08/31/16 05:10 BP 116/78 08/31/16 05:10 Pulse Ox 97 08/31/16 07:20 Oxygen Pulse Oxygen Saturation 97 O2 Device Room Air Oxygen Flow Rate 2 Fraction of Inspired Oxygen ( FIO2) Constitutional: No apparent distress, Alert Oriented to: Time, Person, Place - HEENT Head: Normal Eye: Normal Oropharynx: Normal ENT EAC: Normal TMJ: Normal Nose: No Symptoms Reported - Respiratory/Cardiovascular Respiratory: Diminished, Rhonchi Cardiovascular: Normal, Systolic murmur - GI Auscultation: Normal Palpation: Normal Tenderness: Non tender Rectal Exam: Deferred - Exam Deferred: Yes - Musculoskeletal Back: Normal Extremities: Normal, Cyanosis - Integumentary Skin: Normal, Warm, Dry Lymphatics: Normal - Neurologic Memory Impaired: Normal Motor Function: Normal Cranial Nerve: Normal Cerebellar: Ataxia Mood Description: Anxious Thought: Coherent Perception: Normal - Other Exam Other Exam Findings: Allergies peach [[place]] Allergy (Severe, Verified 08/28/16 10:53) Hives* codeine [Codeine] Allergy (Intermediate, Verified 08/28/16 10:53) Nausea/Vomiting Last Vital Signs Temp 98.0 F 08/31/16 05:10 Pulse 80 08/31/16 05:10 Resp 19 08/31/16 05:10 BP 116/78 08/31/16 05:10 Pulse Ox 97 08/31/16 07:20 Discharge Home Medication List Alprazolam [Xanax] 1 mg PO TID PRN 06/30/13 [History Confirmed 08/28/16] Carvedilol [Coreg] 6.25 mg PO BID 06/30/13 [History Confirmed 08/28/16] Gabapentin [Neurontin] 400 mg PO BID 06/30/13 [History Confirmed 08/28/16] Hydroxyzine Pamoate [Vistaril] 50 mg PO BID PRN 06/30/13 [History Confirmed 02/04] Ranolazine [Ranexa] 1,000 mg PO BID 06/30/13 [History Confirmed 08/28/16] Rosuvastatin [Crestor] 10 mg PO HS 06/30/13 [History Confirmed 08/28/16] Tiotropium [place] [Spiriva] 1 puff INH QAM 06/30/13 [History Confirmed 08/28/16 ] Metformin HCl [Metformin HCl ER] 1,500 mg PO QAM 09/10/13 [History Confirmed 02/04] Mirtazapine 15 mg PO HS 09/10/13 [History Confirmed 08/28/16] Aspirin (Enteric Coated) [Ecotrin] 81 mg PO QAM 01/27/14 [History Confirmed 02/04] Gabapentin 800 mg PO HS 02/16/14 [History Confirmed 08/28/16] Nitroglycerin [Nitrostat] 0.4 mg SL Q5MX3 PRN 02/16/14 [History Confirmed ] Canagliflozin [Invokana] 300 mg PO QAM 08/17/15 [History Confirmed 08/28/16] Albuterol Sulfate [Proair Hfa] 2 puff INH Q6H PRN 08/28/16 [History Confirmed ] Fluticasone/Salmeterol [Advair 250-50 Diskus] 1 puff IH BID 08/28/16 [History Confirmed 08/28/16] Oxycodone HCl [Oxycodone Immediate Release] 10 mg PO BID 08/28/16 [History Confirmed 08/28/16] Amoxicillin/Potassium Clav [Augmentin 875-125 Tablet] 1 each PO TIDAC #21 tablet 08/31/16 [Rx] Clotrimazole/Betamet Diprop [Lotrisone Cream] 45 gm TOP DAILY #1 cream..g. 08/31 [Rx] Moxifloxacin HCl [Avelox] 400 mg PO DAILY #7 tablet 08/31/16 [Rx] Mupirocin [Bactroban] 22 gm TP BID #1 tube 08/31/16 [Rx] Oxycodone Immediate Release [Oxycodone Immediate Release (OxyIR)] 5 mg PO Q6H PRN #30 tab 08/31/16 [Rx] Probiotic Blend [Richelle Q] 1 each PO DAILY #60 tab 08/31/16 [Rx] New Discharge Medications (Rx) Amoxicillin/Potassium Clav [Augmentin 875-125 Tablet] 1 each PO TIDAC #21 tablet 08/31/16 [Rx] Clotrimazole/Betamet Diprop [Lotrisone Cream] 45 gm TOP DAILY #1 cream..g. 08/31 [Rx] Moxifloxacin HCl [Avelox] 400 mg PO DAILY #7 tablet 08/31/16 [Rx] Mupirocin [Bactroban] 22 gm TP BID #1 tube 08/31/16 [Rx] Oxycodone Immediate Release [Oxycodone Immediate Release (OxyIR)] 5 mg PO Q6H PRN #30 tab 08/31/16 [Rx] Probiotic Blend [Richelle Q] 1 each PO DAILY #60 tab 08/31/16 [Rx] Home Medications Alprazolam [Xanax] 1 mg PO TID PRN 06/30/13 Carvedilol [Coreg] 6.25 mg PO BID 06/30/13 Gabapentin [Neurontin] 400 mg PO BID 06/30/13 Hydroxyzine Pamoate [Vistaril] 50 mg PO BID PRN 06/30/13 Ranolazine [Ranexa] 1,000 mg PO BID 06/30/13 Rosuvastatin [Crestor] 10 mg PO HS 06/30/13 Tiotropium [place] [Spiriva] 1 puff INH QAM 06/30/13 Metformin HCl [Metformin HCl ER] 1,500 mg PO QAM 09/10/13 Mirtazapine 15 mg PO HS 09/10/13 Aspirin (Enteric Coated) [Ecotrin] 81 mg PO QAM 01/27/14 Gabapentin 800 mg PO HS 02/16/14 Nitroglycerin [Nitrostat] 0.4 mg SL Q5MX3 PRN 02/16/14 Canagliflozin [Invokana] 300 mg PO QAM 08/17/15 Albuterol Sulfate [Proair Hfa] 2 puff INH Q6H PRN 08/28/16 Fluticasone/Salmeterol [Advair 250-50 Diskus] 1 puff IH BID 08/28/16 Oxycodone HCl [Oxycodone Immediate Release] 10 mg PO BID 08/28/16 Amoxicillin/Potassium Clav [Augmentin 875-125 Tablet] 1 each PO TIDAC #21 tablet 08/31/16 Clotrimazole/Betamet Diprop [Lotrisone Cream] 45 gm TOP DAILY #1 cream..g. 08/31 Moxifloxacin HCl [Avelox] 400 mg PO DAILY #7 tablet 08/31/16 Mupirocin [Bactroban] 22 gm TP BID #1 tube 08/31/16 Oxycodone Immediate Release [Oxycodone Immediate Release (OxyIR)] 5 mg PO Q6H PRN #30 tab 08/31/16 Probiotic Blend [Richelle Q] 1 each PO DAILY #60 tab 08/31/16 Abnormal Lab Results 08/30/16 08/30/16 08/30/16 11:30 16:50 22:01 RBC Hgb Hct MCV MCH RDW MPV Glucose POC Capillary Glucose 128 H 107 H 178 H Calculated Osmolality 08/31/16 08/31/16 08/31/16 05:07 06:43 06:43 RBC 3.74 L Hgb 12.9 L Hct 38.5 L MCV 103 H MCH 34.6 H RDW 14.6 H MPV 6.9 L Glucose 106 H POC Capillary Glucose 124 H Calculated Osmolality 264 L 08/31/16 06:43 08/31/16 06:43 Active Problems Chronic back pain (Acute) M54.9, G89.29 Continue narcotic analgesics. Diabetic ankle ulcer (Acute) E11.622, L97.309 Continue daily cleaning and dressing change Left leg cellulitis (Acute) L03.116 Clinically improving continue combination of vancomycin and unison. Peripheral vascular disease (Acute) I73.9 Continue aspirin Poorly controlled type 2 diabetes mellitus (Acute) E11.65 Continue oral agents ADA diet and sliding scale regular insulin. Blood sugar under control with no episodes of hypoglycemia Tobacco abuse (Acute) Z72.0 Patient Name: BRAYDEN RAYA LOC: [facility] : 1955 AGE: 60 Order Date:08/28/16 Date of Service:02/04 Report # [id number] Ord Physician: Jewel Dee MD Exam # [id number] Emergency Physician: Geni Shetty MD Exam(s): [id number] MRI/MRI ANKLE LEFT W/WO CLINICAL DATA: Diabetic ulcer around the ankle. EXAM: MRI OF THE LEFT ANKLE WITHOUT AND WITH CONTRAST TECHNIQUE: Multiplanar, multisequence MR imaging of the ankle was performed before and after the administration of intravenous contrast. CONTRAST: 20 cc MultiHance COMPARISON: 08/25/2016 FINDINGS: TENDONS Peroneal: Unremarkable Posteromedial: Mild distal tibialis posterior tendinopathy. Anterior: Unremarkable Achilles: Unremarkable Plantar Fascia: Unremarkable LIGAMENTS Lateral: Unremarkable Medial: Unremarkable CARTILAGE Ankle Joint: 3 mm chronic appearing osteochondral defect to the medial talar dome, image 19 series 8. Subtalar Joints/Sinus Tarsi: Unremarkable Bones: Unremarkable. Soft tissues: There is subcutaneous edema tracking along the dorsum of the foot and lateral foot, and also tracking lateral to the lateral malleolus, but without abscess, underlying osteomyelitis, or well-defined soft tissue defect. No significant volume of a necrotic hypoenhancing tissue identified. IMPRESSION: IMPRESSION 1. Subcutaneous edema and enhancement suggesting cellulitis tracking laterally along the ankle and along the dorsum of the foot. No abscess or osteomyelitis identified. No significant volume of necrotic tissue identified. 2. Small chronic appearing osteochondral defect of medial talar dome, 3 mm diameter. 3. Mild distal tibialis posterior tendinopathy. Electronically Signed By: Larry Calderón M.D.
[2016-08-31 10:51] VITALS: BP 125/75; PULSE 82; TEMP 97.7
== END 2016-08-31 13:09 | disposition home or self-care (01) | DRG 603 ==
LOC: ED 10:40 → MPS3 12:06
PROVIDERS: ADMIT Internal Medicine; ATTEND Internal Medicine
DX: L03.116 Cellulitis of left lower limb (principal); E11.622 Type 2 diabetes mellitus with other skin ulcer; J44.0 Chronic obstructive pulmonary disease with (acute) lower respiratory infection; L97.309 Non-pressure chronic ulcer of unspecified ankle with unspecified severity; J44.1 Chronic obstructive pulmonary disease with (acute) exacerbation; Z23 Encounter for immunization; I73.9 Peripheral vascular disease, unspecified; E11.65 Type 2 diabetes mellitus with hyperglycemia; I25.10 Atherosclerotic heart disease of native coronary artery without angina pectoris; J20.9 Acute bronchitis, unspecified; G89.29 Other chronic pain; M54.5 Low back pain; F17.219 Nicotine dependence, cigarettes, with unspecified nicotine-induced disorders; I12.9 Hypertensive chronic kidney disease with stage 1 through stage 4 chronic kidney disease, or unspecified chronic kidney disease; N18.9 Chronic kidney disease, unspecified; K21.9 Gastro-esophageal reflux disease without esophagitis; M19.011 Primary osteoarthritis, right shoulder; F41.9 Anxiety disorder, unspecified; Z71.6 Tobacco abuse counseling; I25.2 Old myocardial infarction; Z88.5 Allergy status to narcotic agent; Z91.018 Allergy to other foods; Z79.84 Long term (current) use of oral hypoglycemic drugs; Z79.82 Long term (current) use of aspirin; Z79.51 Long term (current) use of inhaled steroids
CPT/HCPCS: 36415; 71010; 80048; 80053; 80202; 81001; 82962; 83735; 84484; 85025; 85027; 85610; 85730; 87040; 90471; 90656; 93005; 94640; 96365; 96372; 96375; 97161; 98960; 99284; 99406; A9577; G0237; J0295; J1650; J2270; J2405; J3370; J3490; J7030; J7060; J7620